=== PATIENT | female | born 1965 | race Caucasian/White ===

== ENCOUNTER 2023-07-11 03:48 | Emergency (ER) | payer BC ==
--- NOTE | 2023-07-11 03:59 | ED Physician Documentation ---
History of Present Illness - Stated complaint Stated Complaint: TINGLING EXTREMITIES - History obtained from History obtained from: Patient - Additonal information Additional information: HPI from patient. Patient has multiple complaints. She complains of insomnia x 3 days, bilateral hands and feet have been "tingling" (per patient), "I feel hot, then I feel freezing cold", "my whole body is buzzing", "I feel anemic", and sensation that she might pass out (this started earlier this evening). Patient says she has had decreased PO intake over past 2-3 days, as well. PD PAST MEDICAL HISTORY - Allergies Allergies/Adverse Reactions: Allergies Allergy/AdvReac Type Severity Reaction Status Date / Time No Known Drug Allergies Allergy Verified 07/11/23 04:10 PD ED PE NORMAL - Vitals Vital signs reviewed: Yes - General General: Alert and oriented X 3, No acute distress, Well developed/nourished - Neck Neck: Supple, no meningeal sign - Cardiac Cardiac: RRR, No murmur - Respiratory Respiratory: No respiratory distress, Clear bilaterally - Abdomen Abdomen: Soft, Non tender - Neuro Neuro: Alert and oriented X 3, Normal speech Results - Vitals Vitals: Vital Signs - 24 hr 07/11/23 04:08 Temperature 36.8 C Heart Rate 76 Respiratory 18 Rate Blood Pressure 140/84 H O2 Saturation 100 Oxygen O2 Source Room air PD Medical Decision Making - ED course ED course: As noted above in HPI, patient has multiple complaints. After performing physical exam as documented above, I made further attempts to have patient elaborate on several of her symptoms. For example, in addition to saying that she felt intermittently hot and then cold, she also says she has been having "trouble regulating my body temperature". As such, I asked her if she has been taking her temperature at home. She indicates to me that her temperature is normal, as noted on ED triage night. I asked her again if she was taking her temperature at home, and she indicates that she has not and seems frustrated with this question. I explained to her that I was merely trying to ascertain if her temperature had been measured and if there were any notable abnormalities. Regarding her comment of feeling anemic, I asked her if she has been diagnosed with anemia. She indicates to me that she had recent outpatient blood work by her PCP, and that her MCHC was abnormal. I again asked her if she has been diagnosed with anemia, and she says she has not received such diagnosis; she again seems increasingly frustrated with attempts to clarify some of her complaints, specifically what symptoms she is experiencing that would correlate with her sensation of feeling anemic. And asking some routine ROS questions, the patient seems increasingly aggravated. I asked her if she has been experiencing headaches; she indicates she has been having headaches but that she also has migraines. I asked her if her recent headaches are different from her usual migraines, explaining that if her headaches do not feel similar to her previous headaches, I would consider CT scan of her head. She says she does not feel she needs this test. I then turned to other testing recommendations; specifically, I explained that I would order some basic blood tests. She then indicates she had blood work earlier this month by PCP and can show me the results on her iPhone. She accesses her [employer] and, with patient's permission, I reviewed some of these results. The results are from June 24 of this year. She had a normal CMP, CBC (except for abnormal MCHC). I note several other blood tests but I did not check other results as they were not relevant to her emergent assessment of these complaints (for example, lipid panel). I discussed with her the possibility of repeating some of these tests to see if there were any significant differences, although it seems unlikely that there would be any such significant difference in this scenario (medications that would not be expected to result in abnormalities on basic blood work (gabapentin, nadolol, Mirapex, fluoxetine), no noted blood in stool or dark black-tarry stool per patient, no diarrhea nor vomiting that would possibly cause electrolyte abnormality). The patient is expressing increasing frustration with this conversation, concerns regarding her multiple complaints. Before I could further discuss what test might be appropriate in the emergency standpoint, I turned to discussion of symptom treatment. Specifically, I asked if she would be interested in medication to help with her insomnia. She answers in the negative, says that she has medication to help her sleep already. At this point, I asked patient what her goals of kim's visit to the emergency department are, specifying whether she was worried about diagnosis, symptoms, or both. She then turns to the person who is accompanying her in the room, says "this is bullshit", ripped off her ER ID bracelet in front of me, and tells me she is leaving right this moment. She tells me she is not interested in any further conversation with me. Departure - Departure Disposition: 07 Against Medical Advice Clinical Impression: Paresthesias Condition: Good Instructions: ED Paraesthesias Forms: PCP List Discharge Date/Time: 07/11/23 04:20
[2023-07-11 04:15] VITALS: BP 140/84; O2SAT 100
== END 2023-07-11 04:20 | disposition left against medical advice (07) ==
LOC: ED 03:48
DX: R20.2 Paresthesia of skin (principal)
CPT/HCPCS: 99281; 99283